=== PATIENT | female | born 2000 | race Caucasian/White ===

== ENCOUNTER 2022-01-13 21:48 | Emergency (ER) | payer OTHER, BC, SELFPAY ==
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
[2022-01-13 21:58] VITALS: BP 130/77; BP 131/78; PULSE 101; PULSE 88; RESP 20; TEMP 36.8; O2SAT 100; O2SAT 98; BMI 25.0
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
[2022-01-14] MEDS: Acetaminophen 325 MG TABLET 650 MG PO (00:26)
[2022-01-14] MEDS: Diphth,Pertus(ACell),Tet Adult 0.5 ML SYRINGE IM (00:27)
[2022-01-14 00:29] LABS: UPreg QC Valid YES; Urine Pregnancy NEGATIVE (NEGATIVE)
--- NOTE | 2022-01-14 00:43 | PC.NURSE ---
C-Collar removed per CT report of negative findings and verbal request. Patient ambulatory to BR without trouble.
[2022-01-14] MEDS: Ketorolac Tromethamine 15 MG/ML VIAL IM (00:57)
[2022-01-14] MEDS: Lidocaine 4 % Patch ADH..PATCH 1 PATCH TRANSDERMA (00:57)
== END 2022-01-14 01:16 | disposition home or self-care (01) ==
PROVIDERS: Emergency Provider Student in an Organized Health Care Education/Training Program; PCP Internal Medicine
DX: Z04.1 Encounter for examination and observation following transport accident (principal); M79.10 Myalgia, unspecified site
CPT/HCPCS: 70450; 72125; 81025; 90471; 90715; 96372; 99283; 99284; J1885

== ENCOUNTER 2022-02-05 11:45 | Outpatient (RCR) | payer OTHER, BC, SELFPAY | END 2022-02-27 15:08 | disposition home or self-care (01) | LOC: HO.PTWFD 11:45 | PROVIDERS: PCP Internal Medicine; Visit Provider Internal Medicine | DX: M54.2 Cervicalgia (principal); M54.6 Pain in thoracic spine; M54.50 Low back pain, unspecified | CPT/HCPCS: 97110; 97161; 97535 ==